=== PATIENT | female | born 1975 | race Caucasian/White ===

== ENCOUNTER 2016-09-12 19:47 | Emergency (ER) | payer OTHER ==
[2016-09-12 20:17] VITALS: BP 134/74; PULSE 79; RESP 14; TEMP 99; O2SAT 97
--- NOTE | 2016-09-12 20:53 | DX ---
Cervical spine with obliques 4 views 6 hours. History: Recurring right hand and face numbness with neck pain. Chronic history of neck pain for 2 ye ars. Findings: Comparison to October 18, 2013. There is reversal the normal lordosis of the mid cervical spine similar to the prior study. Mild inte rvertebral disk space narrowing is once again evident at C5-C6. The remainder the disk spaces are nor mal. There is mild right-sided facet hypertrophy at C5-C6. The remainder of the facet joints appear t o be normal. There is associated mild to moderate right-sided neural foraminal stenosis. Precervical soft tissues are normal. Impression: 1. Stable mild disk space narrowing at C5-C6 with right-sided facet hypertrophy and mild to moderate right-sided neuroforaminal stenosis.
--- NOTE | 2016-09-12 21:04 | UCPHY ---
H & P Time Seen by Provider: 09/12/16 20:41 Patient Type: Established HPI/ROS: This patient presents with intermittent neck pain and numbness in her right face and right hand which has been present for approximately 2 years. Since [place] time her symptoms have been somewhat worse. The symptoms are very cyclical and lasts 3-7 minutes only to reoccur in minutes to hours. She has a history of peripheral neuropathy and has had numerous imaging studies and no specific cause has been found for her symptoms. Today she comes to Urgent Care primarily for a neck x-ray and does not really expect a diagnosis at this time. Smoking Status: Never smoked Physical Exam: This is a well-developed well-nourished female who is in no acute distress. Neck: There is minimal neck tenderness primarily over the occipital ridges. Carotid pulsations are symmetric and strong. Upper extremities: Skin color is normal. Peripheral pulses are strong and symmetric. Motor function involving the median, radial and ulnar nerves is intact and strong and there is no evidence of cervical root weakness. Constitutional: Initial Vital Signs Temperature (C) 37.2 C 09/12/16 20:08 Heart Rate 79 09/12/16 20:08 Respiratory Rate 14 09/12/16 20:08 Blood Pressure 134/74 H 09/12/16 20:08 O2 Sat (%) 97 09/12/16 20:08 O2 Delivery Mode Room Air Allergies/Adverse Reactions: ketorolac tromethamine [From Toradol] Allergy (Verified 09/12/16 20:06) Home Medications: Medication Instructions Recorded Albuterol Hfa Anes Only [Proair 2 puffs IH QID 03/31/12 Hfa Icu (RX)] valACYclovir [Valtrex (RX)] 02/21/15 Medical Decision Making - Diagnostics Imaging: X-rays of the cervical spine shows some very mild mild degenerative changes discuss basis for the most part are normal and there is no bony encroachment on the neural foramina. Differential Diagnosis: I do not have a diagnosis for this patient's symptoms but do not believe that this represents cervical radiculopathy or any other serious cause of neck pain and paresthesias. Departure - Departure Disposition: Home, Routine, Self-Care Clinical Impression: Neck pain, Right upper extremity numbness Condition: Good Instructions: Neck Pain (ED), Paresthesia (ED) Additional Instructions: Keep your appointment with the neurologist as previously scheduled. Referrals: Kandis Oconnor MD [Primary Care Provider] - As per Instructions Rg Rubalcava MD [Medical Doctor] - As per Instructions - PQRS PQRS Measurement: Not applicable
== END 2016-09-12 21:08 | disposition home or self-care (01) ==
LOC: CED 19:47
DX: M54.2 Cervicalgia (principal); R20.9 Unspecified disturbances of skin sensation
CPT/HCPCS: 72050-PO; 99214-PO; G0463-PO

== ENCOUNTER → 2016-09-22 | Outpatient (CLI) | payer OTHER ==
[~2016-09-22] MED LIST: GADOBUTROL 10 ML VIAL IVP ONE
--- NOTE | 2016-09-22 20:58 | MR ---
MRI of the Head (Before and Following Gadolinium) Clinical Indications: Paresthesias, evaluate for demyelination. Comparison examination: March 01, 2015. Technique: T1-weighted images were obtained sagittally and axially. Diffusion-weighted, inversion r ecovery, and fast T2-weighted axial images were obtained. T1-weighted axial and coronal images were obtained after intravenous administration of 7.5 mL of Gadavist. Findings: No hemorrhage, mass lesions or acute infarction. Ventricles and subarachnoid spaces are n ormal. The brain has normal signal with no evidence of neoplasm or demyelinating disease. Appropria te voids of signal are found within the major vessels of the [place] of [place]. Contents of the poste rior fossa are nicely displayed and normal. No fluid in the paranasal sinuses. No enhancing lesions are found. Impression: Normal MRI examination of the brain..
--- NOTE | 2016-09-22 22:08 | MR ---
MRI of the Cervical Spine [(Without and With Contrast)] History: Paresthesias, evaluate for demyelinating disease. [Technique: Sagittal T1 and T2 sequences. Axial T2 and gradient echo sequences.] After intravenous administration of 7.5 mL Gadavist, post contrast sagittal and axial images are obta ined. Findings C2-C3: Negative. C3-C4: Negative. C4-C5: Disk desiccation and mild annular bulging, without discrete disk prolapse or neural impingeme nt. C5-C6: Moderate-sized broad-based central and left paracentral disk protrusion, with slight mass eff ect on the ventral cervical spinal cord in the left paracentral space, without myelomalacia. Seconda ry moderate acquired central canal stenosis. The left neural foramina is also moderately stenotic se condary to annular bulging. C6-C7: Disk desiccation and diffuse annular bulging, most severe in the left neural foramina, where moderate left neural foraminal stenosis is present. C7-T1: Negative. The cervical cord maintains normal signal intensity. The craniocervical junction appears normal. After intravenous contrast administration, there is normal enhancement of the cervical spinal cord an d epidural soft tissues. Impressions 1. No features of demyelinating disease within the cervical spinal cord. 2. Moderate-sized broad-based central and left paracentral disk protrusion at C5-C6, with associated left lateral recess and foraminal stenosis. 3. Moderate left neural foraminal stenosis at C6-C7. E:RN/amm
== END ==
LOC: FIMAGING 18:37
PROVIDERS: ATTEND Physician Assistant Medical
DX: R20.2 Paresthesia of skin (principal); M99.71 Connective tissue and disc stenosis of intervertebral foramina of cervical region
CPT/HCPCS: A9585

== ENCOUNTER → 2016-12-25 | Outpatient (CLI) | payer OTHER | LOC: FIMAGING 14:40 | PROVIDERS: ATTEND Family Medicine | DX: Z12.39 Encounter for other screening for malignant neoplasm of breast (principal); N64.59 Other signs and symptoms in breast | CPT/HCPCS: G0206 ==

== ENCOUNTER → 2017-08-03 | Outpatient (CLI) | payer OTHER | LOC: FIMAGING 09:02 | PROVIDERS: ATTEND Family Medicine | DX: Z12.31 Encounter for screening mammogram for malignant neoplasm of breast (principal) | CPT/HCPCS: G0202 ==

== ENCOUNTER 2017-12-05 11:39 | Emergency (ER) | payer OTHER ==
[2017-12-05 11:43] VITALS: TEMP 98.2
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
--- NOTE | 2017-12-05 11:51 | CPEKG ---
Heart Rate: 56 RR Interval: 1071 P-R Interval: 112 QRSD Interval: 92 QT Interval: 436 QTC Interval: 421 P [place]: 11 QRS [place]: 71 T Wave [place]: 54 EKG Severity - NORMAL ECG - EKG Impression: SINUS RHYTHM Electronically Signed By: Zia Salinas 05-Dec-2017 14:36:08
[2017-12-05 12:02] LABS: PLATELET COUNT 280 10^3/uL (150-400)
[2017-12-05 13:46] VITALS: BP 111/87; PULSE 68; RESP 18; O2SAT 98
== END 2017-12-05 13:45 | disposition home or self-care (01) ==
DX: R07.89 Other chest pain (principal); J45.909 Unspecified asthma, uncomplicated

== ENCOUNTER → 2018-03-08 | Outpatient (CLI) | payer OTHER | LOC: FIMAGING 16:57 | PROVIDERS: ATTEND Family Medicine | DX: R10.2 Pelvic and perineal pain (principal); D68.51 Activated protein C resistance; Z90.79 Acquired absence of other genital organ(s) ==

== ENCOUNTER 2018-03-10 05:44 | Emergency (ER) | payer OTHER ==
--- NOTE | 2018-03-10 06:02 | CPEKG ---
Heart Rate: 64 RR Interval: 938 P-R Interval: 136 QRSD Interval: 88 QT Interval: 416 QTC Interval: 430 P [place]: 40 QRS [place]: 68 T Wave [place]: 55 EKG Severity - NORMAL ECG - EKG Impression: SINUS RHYTHM Electronically Signed By: Susi Parsons 10-Mar-2018 07:45:31
[2018-03-10 06:17] LABS: PLATELET COUNT 300 10^3/uL (150-400)
--- NOTE | 2018-03-10 07:16 | EDPHY ---
HPI/HX/ROS/PE/MDM Narrative: CHIEF COMPLAINT: Chest pain HPI: The patient is a 42 y/o female with a history of asthma arriving with her member complaining of ongoing pleuritic and left-sided chest pain that began on 12/03/17 and worsened acutely at 03:30 this morning, about 4 hours ago. She was evaluated here on 12/05/17 after the pain first began. At that time she had a negative work up apart from an elevated d-dimer, but she ultimately refused a chest CTA to evaluate for pulmonary embolism. She followed up with cardiology a week later and reports her d-dimer was still high and an echocardiogram showed mild mitral valve regurgitation. They did not believe her pain was cardiac in origin. She has since seen Dr. Forrester for unclear reasons and reports she is "double recessive for Factor V Leiden." Her chest pain has been constant since then until it woke her from sleep early this morning. It is currently located across her left chest and radiates into her left arm and around to the left side of her back. It is worse with deep inspiration. She denies cough, fever, abdominal pain, vomiting, dysuria, hematuria, recent trauma , recent illness. REVIEW OF SYSTEMS: Aside from elements discussed in the HPI, a comprehensive 10-point review of systems was reviewed and is negative. PMH: Asthma, peripheral neuropathy, ocular migraines, "double recessive for Factor V Leiden" SOCIAL HISTORY: Nonsmoker, , lives in [place]. Prior medical records reviewed including ED visit 12/05/17 for chest pain. PHYSICAL EXAM: General:Patient is alert, in no acute distress. ENT:Eyes are normal to inspection. ENT inspection normal. Neck: Normal inspection. Full range of motion. Respiratory:No respiratory distress. Breath sounds normal bilaterally. Cardiovascular: Regular rate and rhythm. Strong peripheral pulses. Normal cap refill. Abdomen:The abdomen is nontender to palpation. There are no peritoneal signs. Back: Normal to inspection. No tenderness to palpation. Skin: Normal color. No rash. Warm and dry. Extremities: Normal appearance. Full range of motion. Neuro: Oriented x3. Normal motor function. Normal sensory function. ED Course: This is a 42 y/o female with a history of asthma and some recently diagnosed risk factor for Factor V Leiden deficiency who presents with a 3-month history of constant, left-sided, pleuritic chest pain that worsened acutely this morning. Notably, when she was evaluated for this shortly after onset in December, she had an elevated d-dimer and apparently several successive elevated d-dimers at outpatient labs, but refused chest CTA. Her exam today is unremarkable. Plan for IV, labs, EKG, chest CTA. The 12 lead EKG was interpreted by myself. See hard copy and/or "tracemaster" electronic copy for interpretation. Chest CTA: negative. Labs including troponin and d-dimer are unremarkable. Reassessed patient and discussed findings. Her exam remains unremarkable. I've found no concerning causes for her chest pain here. She has already been evaluated by cardiology for this pain and given negative troponin and normal EKG , doubt ACS. We've ruled out PE with the CTA. No evidence of infectious etiology. Offered admission for further evaluation, which she declines. I've recommended follow up with her PCP for unimproved symptoms. Return precautions discussed. She is comfortable with this plan. MDM: This patient presents with ongoing left-sided pleuritic chest pain for at least two months. She previously had an elevated d-dimer but refused CTA - today her dimer is negative but she is requesting a CTA, which is reasonable as dimer could be false negative if clot has been present this duration. Thankfully this test was negative. We repeated an extensive workup in the ED today and there remain no signs of ACS, PTx, PNA, TAD ,PE. Patient has already been seen by outpatient cardiology who have found no abnormality per patient. Given negative testing and duration of symptoms, I think she is safe for further outpatient workup. We discussed strict return precautions. - Data Points Imaging Results: Imaging Impressions Chest/Thorax CTA 03/10/18 07:16 Impression: 1. No evidence of thrombopulmonary embolic disease. 2. Clear lungs. No acute process or explanation for left-sided pain. Findings discussed with Emergency Department physician, Dr. Zia Salinas on March 10, 2018 at 7:59.a.m. Imaging: I viewed and interpreted images myself Laboratory Results: Laboratory Results 03/10/18 06:05 03/10/18 06:05 03/10/18 03/10/18 03/10/18 06:07 06:05 06:05 WBC RBC Hgb Hct MCV MCH MCHC RDW Plt Count MPV Neut % (Auto) Lymph % (Auto) [place] % (Auto) Eos % (Auto) Baso % (Auto) Nucleat RBC Rel Count Absolute Neuts (auto) Absolute Lymphs (auto) Absolute Monos (auto) Absolute Eos (auto) Absolute Basos (auto) Absolute Nucleated RBC Immature Gran % Immature Gran # D-Dimer 0.36 ug/mLFEU ug/mLFEU (0.00-0.50) Sodium 141 mEq/L mEq/L (135-145) Potassium 4.8 mEq/L mEq/L (3.3-5.0) Chloride 107 mEq/L mEq/L (97-110) Carbon Dioxide 24 mEq/l mEq/l (22-31) Anion Gap 10 mEq/L mEq/L (8-16) BUN 13 mg/dL mg/dL (7-23) Creatinine 0.7 mg/dL mg/dL (0.6-1.0) Estimated GFR > 60 Glucose 82 mg/dL mg/dL (70-100) Calcium 9.3 mg/dL mg/dL (8.5-10.4) POC Troponin I 0.00 ng/mL ng/mL (0.00-0.08) 03/10/18 06:05 WBC 7.03 10^3/uL 10^3/uL (3.80-9.50) RBC 4.60 10^6/uL 10^6/uL (4.18-5.33) Hgb 14.6 g/dL g/dL (12.6-16.3) Hct 44.0 % % (38.0-47.0) MCV 95.7 fL fL (81.5-99.8) MCH 31.7 pg pg (27.9-34.1) MCHC 33.2 g/dL g/dL (32.4-36.7) RDW 13.2 % % (11.5-15.2) Plt Count 300 10^3/uL 10^3/uL (150-400) MPV 9.6 fL fL (8.7-11.7) Neut % (Auto) 47.8 % % (39.3-74.2) Lymph % (Auto) 40.3 % % (15.0-45.0) [place] % (Auto) 8.5 % % (4.5-13.0) Eos % (Auto) 2.7 % % (0.6-7.6) Baso % (Auto) 0.6 % % (0.3-1.7) Nucleat RBC Rel Count 0.0 % % (0.0-0.2) Absolute Neuts (auto) 3.36 10^3/uL 10^3/uL (1.70-6.50) Absolute Lymphs (auto) 2.83 10^3/uL 10^3/uL (1.00-3.00) Absolute Monos (auto) 0.60 10^3/uL 10^3/uL (0.30-0.80) Absolute Eos (auto) 0.19 10^3/uL 10^3/uL (0.03-0.40) Absolute Basos (auto) 0.04 10^3/uL 10^3/uL (0.02-0.10) Absolute Nucleated RBC 0.00 10^3/uL 10^3/uL (0-0.01) Immature Gran % 0.1 % % (0.0-1.1) Immature Gran # 0.01 10^3/uL 10^3/uL (0.00-0.10) D-Dimer Sodium Potassium Chloride Carbon Dioxide Anion Gap BUN Creatinine Estimated GFR Glucose Calcium POC Troponin I Point of Care Test Results: Chemistry 03/10/18 06:07 POC Troponin I 0.00 ng/mL ng/mL (0.00-0.08) General Time Seen by Provider: 03/10/18 06:50 Initial Vital Signs: Initial Vital Signs Temperature (C) 36.6 C 03/10/18 05:47 Heart Rate 75 03/10/18 05:47 Respiratory Rate 16 03/10/18 05:47 Blood Pressure 119/71 03/10/18 05:47 O2 Sat (%) 96 03/10/18 05:47 O2 Delivery Mode Room Air Allergies/Adverse Reactions: ketorolac tromethamine [From Toradol] Allergy (Verified 12/05/17 11:41) Home Medications: Medication Instructions Recorded Albuterol Hfa Anes Only [Proair 2 puffs IH QID 03/31/12 Hfa Icu (RX)] valACYclovir [Valtrex (RX)] 02/21/15 Neurontin 12/05/17 Departure - Departure Disposition: Home, Routine, Self-Care Clinical Impression: Chest pain Condition: Good Instructions: Chest Pain (ED) Additional Instructions: Follow up with your primary care provider for unimproved symptoms. Return to the ED for worsening of condition. Referrals: Kandis Oconnor MD [Primary Care Provider] - As per Instructions Report Scribed for: Zia Salinas Report Scribed by: Kaylee Christie Date of Report: 03/10/18 Time of Report: 07:02 Physician Review and Approval Statement: Portions of this note were transcribed by an ED scribe. I personally performed the history, physical exam, and medical decision making; and confirm the accuracy of the information in the transcribed note.
[2018-03-10] MEDS ORDERED: IOPAMIDOL (ISOVUE 370) 100 ML BTL IV ONE (07:24)
[2018-03-10 08:06] VITALS: BP 116/71
== END 2018-03-10 08:32 | disposition home or self-care (01) ==
DX: R07.9 Chest pain, unspecified (principal); J45.909 Unspecified asthma, uncomplicated
CPT/HCPCS: 84484-PO; Q9967

== ENCOUNTER → 2019-01-25 | Outpatient (CLI) | payer OTHER | LOC: FIMAGING 16:04 | PROVIDERS: ATTEND Family Medicine | DX: Z12.31 Encounter for screening mammogram for malignant neoplasm of breast (principal); Z80.3 Family history of malignant neoplasm of breast ==